=== PATIENT | male | born 1955 | race Caucasian/White ===

== ENCOUNTER 2016-07-12 21:48 | Emergency (ER) | payer OTHER ==
[2016-07-12 22:09] LABS: URINE CULTURE PL NEEDED? NO; URINE SOURCE VOIDED
[2016-07-12 22:27] LABS: BILIRUBIN URINE NEGATIVE (NEGATIVE); BLOOD URINE 4+ (NEGATIVE); CLARITY CLEAR (CLEAR); COLOR YELLOW; GLUCOSE URINE NEGATIVE (NEGATIVE); LEUKOCYTES URINE TRACE (NEGATIVE); NITRITE URINE NEGATIVE (NEGATIVE); PROTEIN URINE NEGATIVE (NEGATIVE); UROBILINOGEN URINE NORMAL
[2016-07-12 22:28] LABS: URINE EPITHELIAL CELLS <10 /HPF (<10); URINE RBC 20-40 /HPF (<10)
[2016-07-12] MEDS ORDERED: NS 500 ML IV ONE (22:44)
[2016-07-12] MEDS ORDERED: TORADOL IV ONE (22:51)
[2016-07-12] MEDS ORDERED: PHENERGAN IV ONE (22:56)
[2016-07-12] MEDS ORDERED: SODIUM CHLORIDE 0.9% INJ ONE (22:56)
[2016-07-12] MEDS ORDERED: MORPHINE IV ONE (22:56)
[2016-07-12] MEDS ORDERED: TORADOL ONE (23:13)
[2016-07-12 23:43] LABS: BASO% 0.1 % (0.0-0.8); EOS# 0.09 X1000 (0.0-0.7); EOS% 0.7 % (0.0-10.0); HEMATOCRIT 40.1 % (42.0-52.0); HEMOGLOBIN 13.8 g/dL (14.0-18.0); IMM GRAN# 0.02 X1000 (0.0-0.04); IMM GRAN% 0.2 % (0.0-0.5); LYMPH# 1.03 X1000 (1.2-3.4); LYMPH% 8.1 % (20.5-51.1); MANUAL DIFF NEEDED? NO; MCHC 34.4 g/dL (33-37); MCV 84.2 FL (81-99); MONO# 0.43 X1000 (0.11-0.59); MONO% 3.4 % (1.7-9.3); MPV 8.4 FL (7.4-10.4); NEUT% 87.5 % (42.2-75.2); PLT 333 X1000 (130-400); RBC 4.76 XMIL (4.7-6.1)
[2016-07-12 23:47] LABS: ALBUMIN 4.3 g/dL (3.5-5.0); CALCIUM 9.7 mg/dL (8.8-10.2); POTASSIUM 4.1 mmol/L (3.5-5.1); TOTAL BILIRUBIN 0.3 mg/dL (0.20-1.00); TOTAL PROTEIN 7.3 g/dL (6.3-8.3)
--- NOTE | 2016-07-12 23:55 | PROVIDER DOCUMENTATION ---
HPI-Abdominal Pain/GI Problem - General Chief Complaint: Flank Pain Stated Complaint: KIDNEY STONE Time Seen by Provider: 07/12/16 22:51 Source: patient Allergies/Adverse Reactions: Patient Allergies Allergy/AdvReac Type Severity Reaction Status Date / Time No Known Allergies Allergy Verified 09/16/13 15:47 Home Medications: Home Medication List Medication Instructions Recorded Confirmed Last Taken Type Albuterol 2.5MG/Ipratrop 0.5MG 3 ml INH Q6H PRN PRN 09/16/13 02/16/16 02/16/16 08:00 History [Duoneb (A & A)] 3 ML Diltiazem HCl [Tiazac] 360 mg PO DAILY 09/16/13 02/16/16 02/16/16 08:00 History 360 MG Budesonide/Formoterol Fumarate 1 dose INH DAILY 02/16/16 02/16/16 02/16/16 08: 00 History [Symbicort 160-4.5 Mcg Inhaler] 1 DOSE Amlodipine [Norvasc] 10 mg PO DAILY #30 tablet 02/19/16 Unknown Rx Aspirin 325 mg PO DAILY #0 tablet 02/19/16 Unknown Rx Labetalol [Trandate] 100 mg PO BID #60 tablet 02/19/16 Unknown Rx SIMVAstatin [Zocor] 80 mg PO QHS #30 tablet 02/19/16 Unknown Rx Sennosides/Docusate Sodium 2 each PO BID #0 tablet 02/19/16 Unknown Rx [Pericolace] Ketorolac [Toradol] 10 mg PO Q6H PRN PRN #12 tablet 07/12/16 Unknown Rx Oxycodone HCl/Acetaminophen 1 each PO Q4-6H PRN PRN #18 tablet 07/12/16 Unknown Rx [Percocet 5-325 mg Tablet] Promethazine [Phenergan] 1 - 2 tab PO Q6H PRN PRN #18 tablet 07/12/16 Unknown Rx - History of Present Illness-ABD Nature of Presenting Problems: 61 year old M presents to the ED with a cc of left flank pain radiating into left groin with mild nausea with an onset of noon. Pt states that he has a hx of kidney stones. Abdominal Pain Onset Location: reports: flank (left) Pain Radiation: reports: groin (left) Quality of Pain: reports: aching Severity in ED: reports: moderate Onset/Duration: reports: this afternoon Timing: reports: still present Activities at Onset: reports: none Modifying Factors: improves with: nothing Associated Symptoms: reports: nausea Bruising or Bleeding Gums?: No Similar Symptoms Previously?: Yes Recently seen or treated by another doctor?: No Review of Systems - Adult - REVIEW OF SYSTEMS - ADULT Constitutional: denies: chills, fever Eyes: reports: no symptoms reported Ears, Nose, Mouth & Throat: reports: no symptoms reported Cardiovascular: denies: chest pain, palpitations Respiratory: denies: cough, shortness of breath Gastrointestinal: reports: nausea. denies: abdominal pain, diarrhea, vomiting Genitourinary: reports: flank pain. denies: dysuria, hematuria Musculoskeletal: reports: no symptoms reported Integumentary: reports: no symptoms reported Neurological: reports: no symptoms reported Psychiatric: reports: no symptoms reported Endocrine: reports: no symptoms reported Hematologic/Lymphatic: reports: no symptoms reported Allergic/Immunologic: reports: no symptoms reported All Other Systems: Reviewed and Negative Past History - Adult - PAST MEDICAL HISTORY-ADULT Review of Records: reports: Nursing Assessment Review, Medications Reviewed Major Childhood Illnesses: reports: denies history Cardiovascular: reports: HTN, hyperlipidemia Respiratory: reports: COPD Gastrointestinal: reports: denies history Obstetrical/Gynecological: reports: denies history Genitourinary: reports: kidney stones Musculoskeletal: reports: denies history Neurological: reports: TIA Endocrine/Immune: reports: denies history 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) - PRIOR SURGERIES/PROCEDURES Surgical/Procedure History: reports: other (L foot, R leg, jaw, kidney stone removal) - IMMUNIZATION STATUS Childhood Immunizations: See Nurse Assessment Flu Vaccine: See Nurse Assessment - FAMILY HISTORY Family History: reviewed, not pertinent - SOCIAL HISTORY Smoking: quit greater than 1 year Substance Use: none/never Alcohol Use Frequency: never Physical Exam-General - PHYSICAL EXAM-ADULT Initial Vital Signs Reviewed: Yes - CONSTITUTIONAL General Appearance: appears well, alert, no apparent distress - RESPIRATORY Respiratory: chest non-tender, lungs clear, normal breath sounds - CARDIOVASCULAR Cardiovascular: normal peripheral pulses, regular rate, rhythm, no edema - GASTROINTESTINAL (ABDOMEN) Abdominal Exam: normal bowel sounds, non tender, soft - MUSCULOSKELETAL Back Exam: normal inspection, no CVA tenderness, no vertebral tenderness - SKIN Integumentary: normal color, normal turgor, warm/dry - PSYCHIATRIC Psych/Mental Status: normal mood/affect, normal thought content, normal thought process, oriented x 3 Progress - PLAN OF CARE/RESULTS Progress/Plan/Lab Results: plan of care: imaging, labs, medications Orders Category Date Time Status Saline Loc DIRECTED Care 07/12/16 22:43 Active NPO Diet 07/12/16 22:43 Active RENAL STONE SEARCH [CT] Stat Exams 07/12/16 22:43 Taken CBC WITH ELECTRONIC DIFF [HEME] Stat Lab 07/12/16 23:15 Completed COMPREHENSIVE METABOLIC PANEL [CHEM] Stat Lab 07/12/16 23:[address] W/POSS RFLX CULT [URINALYSIS] Stat Lab 07/12/16 21:59 Completed 0.9% Sodium Chloride Inj [Ns] 500 ml Med 07/12/16 22:44 Discontinued IV 999 mls/hr Ketorolac [Toradol] Med 07/12/16 23:13 Discontinued 30 mg .ROUTE .STK-MED ONE Ketorolac [Toradol] Med 07/12/16 22:51 Discontinued 30 mg IV NOW ONE Morphine Med 07/12/16 22:56 Discontinued 4 mg IV NOW ONE Promethazine [Phenergan] Med 07/12/16 22:56 Discontinued 25 mg IV NOW ONE Sodium Chloride 0.9% Med 07/12/16 22:56 Discontinued 10 ml INJ NOW ONE Laboratory Tests 07/12/16 07/12/16 07/12/16 21:59 23:15 23:15 WBC 12.72 H RBC 4.76 Hgb 13.8 L Hct 40.1 L MCV 84.2 MCH 29.0 MCHC 34.4 RDW Std Deviation 13.2 Plt Count 333 MPV 8.4 Immature Gran % (Auto) 0.2 Neut % (Auto) 87.5 H Lymph % (Auto) 8.1 L [place] % (Auto) 3.4 Eos % (Auto) 0.7 Baso % (Auto) 0.1 Immature Gran # (Auto) 0.02 Neut # (Auto) 11.14 H Lymph # (Auto) 1.03 L [place] # (Auto) 0.43 Eos # (Auto) 0.09 Baso # (Auto) 0.01 Sodium 135 L Potassium 4.1 Chloride 98 Carbon Dioxide 24 L Anion Gap 13 BUN 22 Creatinine 1.3 H Estimated GFR/1.73 m2 56 BUN/Creatinine Ratio 17 Glucose 121 H Calculated Osmolality 275 Calcium 9.7 Total Bilirubin 0.30 AST 15 ALT 20 Alkaline Phosphatase 90 Total Protein 7.3 Albumin 4.3 Globulin 3.0 Albumin/Globulin Ratio 1.0 Urine Source VOIDED Urine Color YELLOW Urine Clarity CLEAR Urine pH 7.0 Ur Specific [place] 1.010 Urine Protein NEGATIVE Urine Ketones NEGATIVE Urine Blood 4+ Urine Nitrite NEGATIVE Urine Bilirubin NEGATIVE Urine Urobilinogen NORMAL Urine Microscopic RBC 20-40 A Urine WBC TRACE A Urine Microscopic WBC 10-20 A Ur Epithelial Cells <10 Urine Glucose NEGATIVE Vital Signs - 24 hr 07/12/16 21:53 Temperature 98 F Pulse Rate 76 Respiratory 18 Rate Blood Pressure 145/72 O2 Sat by Pulse 97 Oximetry Pt given results and will be d/c home w/ rx to follow up with PCP. Pt verbally understood instructions. PT remained clinically stable throughout the course of the ED stay and will return if symptoms worsen. - REASSESSMENT Reassessment #1 Time Reassessed: 23:50 (Pt feeling much better after medications. ) Status: improving - CT/MRI 1 CT Study: Abdomen, Pelvis Impression: Abnormal (4mm stone in the distal left UVJ with mild L hydronephrosis.: Dr. Zhou- [facility] Carlos Rad Radiologist) Departure - Departure Disposition: HOME 01 Condition: Fair Additional Instructions: FOLLOW UP WITH UROLOGIST DRINK PLENTY FLUIDS (GATORADE, POWERADE, ETC) Prescriptions: Oxycodone HCl/Acetaminophen [Percocet 5-325 mg Tablet] 1 each PO Q4-6H PRN PRN # 18 tablet PRN Reason: Pain Promethazine [Phenergan] 1 - 2 tab PO Q6H PRN PRN #18 tablet PRN Reason: Vomiting Ketorolac [Toradol] 10 mg PO Q6H PRN PRN #12 tablet PRN Reason: Pain Referrals: HUGO DRAKE [Primary Care Provider] - Sonny Clay MD [STAFF PHYSICIAN] - Attestation - Scribe Verification/Attestation Scribe:: Rosalina Weston Acting as Scribe for:: Jovanny Horvath Scribe documention review:: This chart was documented by a scribe and accurately reflects the service the provider performed and the decisions made by the provider. Physician Attestation - Physician Attestation I, the provider, attest to the following statement:: Jovanny Horvath Physician documentation Attestation:: This documentation recorded by the scribe accurately reflects the service I personally performed and the decisions made by me.
[2016-07-13 00:51] VITALS: BP 148/80
--- NOTE | 2016-07-13 07:53 | Diag Imaging Result Document ---
PROCEDURE NAME: RENAL STONE SEARCH - 07/12/2016 CT UROGRAM WITHOUT CONTRAST: FINDINGS: There is a pericardial effusion which anteriorly measures as much as 6 mm in thickness. This is larger than on the previous examination of 02/19/2016. The spleen is within normal limits and unchanged in appearance. There is some thickening of the adrenal glands, which has not changed since the previous study. The gallbladder is somewhat distended but there are no apparent stones and no evidence of inflammation is present. There is left hydronephrosis which was not previously present. There is a somewhat faintly calcified stone at or slightly below the UVJ on the left side measuring up to 8 mm in size. This may be within a ureterocele. The pelvis was not included on the previous study. The appendix is not distended. There is no evidence of bowel obstruction. No free fluid is present. IMPRESSION: Distal left ureterolithiasis with hydronephrosis.
== END 2016-07-13 00:48 | disposition home or self-care (01) ==
LOC: P.ED 21:48
DX: N13.2 Hydronephrosis with renal and ureteral calculous obstruction (principal); R10.9 Unspecified abdominal pain; R10.30 Lower abdominal pain, unspecified; R11.0 Nausea; I10 Essential (primary) hypertension; E78.5 Hyperlipidemia, unspecified; J44.9 Chronic obstructive pulmonary disease, unspecified; Z87.442 Personal history of urinary calculi; Z79.899 Other long term (current) drug therapy; Z86.73 Personal history of transient ischemic attack (TIA), and cerebral infarction without residual deficits; Z87.891 Personal history of nicotine dependence; Z79.82 Long term (current) use of aspirin; Z79.51 Long term (current) use of inhaled steroids
CPT/HCPCS: 74176; 80053; 81001; 85025; J1885; J2270; J2550; J7030